=== PATIENT | female | born 1965 | race Caucasian/White ===

== ENCOUNTER 2017-09-02 20:56 | Observation (INO) | payer BC ==
[~2017-09-02] VITALS: Ht 162.6 cm; Wt 67.8 kg
[2017-09-02 21:54] LABS: HEMATOCRIT 37.5 % (36.0-46.0); MCH 32.9 PG (29.0-34.0); MCHC 34.7 G/DL (30.0-36.0); MCV 94.9 FL (83-99); PLATELET COUNT 309 K/uL (156-360); RBC DIS.WIDTH-CV 13.2 % (11.8-14.6); RBC DIS.WIDTH-SD 45.3 % (39-53); RED BLOOD COUNT 3.95 M/uL (3.80-5.20); WHITE BLOOD COUNT 13.8 K/uL (4.1-10.2)
[2017-09-02 22:01] LABS: ALBUMIN 3.9 g/dL (3.2-4.8); CHLORIDE 91 mEq/L (99-109); POTASSIUM 4.3 mEq/L (3.7-5.4); SODIUM 132 mEq/L (136-147)
[2017-09-02 22:04] LABS: GLUCOSE 77 mg/dL (70-99); TOTAL PROTEIN 6.8 g/dL (6.4-8.3)
[2017-09-02 22:06] LABS: TOTAL BILIRUBIN 0.6 mg/dL (0.0-1.0)
[2017-09-02 22:07] LABS: ALKALINE PHOSPHATASE 57 IU/L (3-129); CREATININE 0.8 mg/dL (0.6-1.3); GFR ESTIMATE (CALCULATED) > 59 mL/min/
[2017-09-02 22:08] LABS: UREA NITROGEN (BUN) 12 mg/dL (9-23)
[2017-09-02 22:09] LABS: AST (GOT) 23 IU/L (2-34)
[2017-09-02 22:10] LABS: ALT (GPT) 19 IU/L (3-49)
[2017-09-02 22:13] LABS: TROP-I INTERPRETATION NEGATIVE; TROPONIN-I < 0.01 ng/mL (0.0-0.30)
[2017-09-02] MEDS ORDERED: DULOXETINE HCL60 MG PO (23:20)
[2017-09-02] MEDS ORDERED: LACTULOSE10 GM/151 PO (23:21)
[2017-09-02] MEDS ORDERED: HYDROCHLOROTHIA25 MG PO (23:22)
[2017-09-02] MEDS ORDERED: HYDROXYCHLOROQ200 MG PO (23:23)
[2017-09-02] MEDS ORDERED: MORPHINE SULFAT15 M1 PO (23:25)
[2017-09-02] MEDS ORDERED: HYDROCODON-ACE1 EAC7 PO (23:26)
[2017-09-02] MEDS ORDERED: OSTEO BI-FLEX1 EAC1 PO (23:27)
[2017-09-02] MEDS ORDERED: MULTIVITAMIN1 EAC2 PO (23:29)
[2017-09-03 01:28] LABS: TROP-I INTERPRETATION NEGATIVE; TROPONIN-I < 0.01 ng/mL (0.0-0.30)
[2017-09-03 04:53] VITALS: BP 119/56
[2017-09-03 07:33] LABS: TROP-I INTERPRETATION NEGATIVE; TROPONIN-I < 0.01 ng/mL (0.0-0.30)
[2017-09-03 08:45] VITALS: BP 122/60
[2017-09-03 08:50] LABS: CHLORIDE 108 MEQ/L (99-109); SODIUM 142 MEQ/L (136-147)
[2017-09-03 08:55] LABS: CREATININE 0.5 MG/DL (0.6-1.3); GFR ESTIMATE (CALCULATED) > 59 mL/min/; UREA NITROGEN (BUN) 10 mg/dL (9-23)
[2017-09-03 09:04] LABS: GLUCOSE 132 mg/dL (70-99)
[2017-09-03 11:18] VITALS: BP 108/61
[2017-09-03 14:41] LABS: C4 COMPLEMENT 24 MG/DL (10-40)
[2017-09-03 15:05] VITALS: BP 121/64
[2017-09-03] MEDS ORDERED: INDOCIN25 MG PO (16:26)
[2017-09-03] MEDS ORDERED: MEDROL DOSEPAK4 MG PO (16:26)
[2017-09-05 11:40] LABS: ANTI-DOUBLE STRANDED DNA 33 U/mL (0-99)
== END 2017-09-03 17:57 | disposition home or self-care (01) ==
LOC: EME 20:56 → ENPENDDIS 09-03 → EDOF 09-03 03:31 → ENRESERV 09-03 03:46 → 5WEST 09-03 04:47
PROVIDERS: Emergency Medicine; Hospitalist; Internal Medicine
DX: M32.19 Other organ or system involvement in systemic lupus erythematosus (principal); R07.81 Pleurodynia; I31.3 Pericardial effusion (noninflammatory); J96.01 Acute respiratory failure with hypoxia; F17.210 Nicotine dependence, cigarettes, uncomplicated; E87.1 Hypo-osmolality and hyponatremia; R94.31 Abnormal electrocardiogram [ECG] [EKG]; I25.10 Atherosclerotic heart disease of native coronary artery without angina pectoris; I35.2 Nonrheumatic aortic (valve) stenosis with insufficiency; M14.80 Arthropathies in other specified diseases classified elsewhere, unspecified site; I10 Essential (primary) hypertension; E78.5 Hyperlipidemia, unspecified; D72.829 Elevated white blood cell count, unspecified
CPT/HCPCS: 71010; 71275; 80048; 80053; 83880; 84484; 85027; 85651; 86140; 86160; 86235; 93005; 94640; 94799; 99202; 99281; 99285; G0378; J1650; J1885; J2270; J2920; J3010; J7030; J7040

== ENCOUNTER 2017-10-04 11:25 | Day surgery (SDC) | payer BC ==
[~2017-10-04] VITALS: Ht 163.8 cm; Wt 66.0 kg
[~2017-10-04 11:25] MED LIST: ASPIR-LOW81 MG PO; DULOXETINE HCL60 MG PO; FAMOTIDINE40 MG PO; FOLIC ACID1 MG PO; HYDROCHLOROTHIA25 MG PO; HYDROCODON-ACE1 EAC7 PO; HYDROXYCHLOROQ200 MG PO; INDOCIN25 MG PO; LACTULOSE10 GM/151 PO; LOSARTAN POTASS25 MG PO; MEDROL DOSEPAK4 MG PO; METHOTREXATE2.5 MG PO; MORPHINE SULFAT15 M1 PO; MULTIVITAMIN1 EAC2 PO; OSTEO BI-FLEX1 EAC1 PO
== END 2017-10-04 19:20 | disposition home or self-care (01) ==
LOC: CATH 11:25
DX: I35.0 Nonrheumatic aortic (valve) stenosis (principal); I25.10 Atherosclerotic heart disease of native coronary artery without angina pectoris; I10 Essential (primary) hypertension; E78.5 Hyperlipidemia, unspecified; L93.0 Discoid lupus erythematosus; Z79.891 Long term (current) use of opiate analgesic; G89.29 Other chronic pain; Z79.82 Long term (current) use of aspirin
CPT/HCPCS: C1769; C1887; J1644; J2250; J3010

== ENCOUNTER 2017-11-17 19:02 | Inpatient (IN) | payer BC ==
[~2017-11-17] VITALS: Ht 162.6 cm; Wt 65.3 kg
[2017-11-17 19:42] LABS: HEMATOCRIT 32.1 % (36.0-46.0); HEMOGLOBIN 11.4 G/DL (11.9-15.5); MCH 32.4 PG (29.0-34.0); MCHC 35.5 G/DL (30.0-36.0); MCV 91.2 FL (83-99); PLATELET COUNT 457 K/uL (156-360); RBC DIS.WIDTH-CV 12.3 % (11.8-14.6); RED BLOOD COUNT 3.52 M/uL (3.80-5.20); WHITE BLOOD COUNT 11.3 K/uL (4.1-10.2)
[2017-11-17 20:03] LABS: CHLORIDE 88 mEq/L (99-109); POTASSIUM 3.6 mEq/L (3.7-5.4); SODIUM 129 mEq/L (136-147)
[2017-11-17 20:04] LABS: GLUCOSE 92 mg/dL (70-99)
[2017-11-17 20:08] LABS: CREATININE 0.8 mg/dL (0.6-1.3); GFR ESTIMATE (CALCULATED) > 59 mL/min/
[2017-11-17 20:09] LABS: UREA NITROGEN (BUN) 13 mg/dL (9-23)
[2017-11-17 20:17] LABS: TROP-I INTERPRETATION NEGATIVE; TROPONIN-I < 0.01 ng/mL (0.0-0.30)
[2017-11-18 00:43] LABS: APPEARANCE CLEAR ((CLEAR)); BILIRUBIN NEGATIVE; BLOOD NEGATIVE; COLOR YELLOW ((YELLOW)); GLUCOSE (STRIP) NEGATIVE; KETONES NEGATIVE; LEUKOCYTES LARGE; NITRITE NEGATIVE; PROTEIN (STRIP) NEGATIVE; SPECIFIC GRAVITY 1.016 (1.000-1.030); UROBILINOGEN 0.2 MG/DL (0.2-1.0)
[2017-11-18 00:51] LABS: BACTERIA RARE /HPF; EPITHELIAL CELLS RARE /HPF; MUCUS NONE SEEN /LPF; RED BLOOD CELLS 0-5 /HPF (0-5); UCUL ADDED? YES; WHITE BLOOD CELLS 15-20 /HPF (0-5)
[2017-11-18 01:40] VITALS: BP 95/55
[2017-11-18 01:41] VITALS: BP 95/55
[2017-11-18 05:42] LABS: TROP-I INTERPRETATION NEGATIVE; TROPONIN-I 0.01 ng/mL (0.0-0.30)
[2017-11-18 07:50] VITALS: BP 90/53
[2017-11-18 08:31] LABS: HEMATOCRIT 28.6 % (36.0-46.0); HEMOGLOBIN 9.6 G/DL (11.9-15.5); MCH 32.2 PG (29.0-34.0); MCHC 33.6 G/DL (30.0-36.0); PLATELET COUNT 391 K/uL (156-360); RBC DIS.WIDTH-CV 12.9 % (11.8-14.6); RBC DIS.WIDTH-SD 44.1 % (39-53); RED BLOOD COUNT 2.98 M/uL (3.80-5.20); WHITE BLOOD COUNT 8.6 K/uL (4.1-10.2)
[2017-11-18 08:43] LABS: CHLORIDE 99 MEQ/L (99-109); CREATININE 0.7 MG/DL (0.6-1.3); GFR ESTIMATE (CALCULATED) > 59 mL/min/; GLUCOSE 100 mg/dL (70-99); POTASSIUM 4.1 MEQ/L (3.7-5.4); SODIUM 134 MEQ/L (136-147); UREA NITROGEN (BUN) 13 mg/dL (9-23)
[2017-11-18 12:14] LABS: TROP-I INTERPRETATION NEGATIVE; TROPONIN-I 0.01 ng/mL (0.0-0.30)
[2017-11-18 16:00] VITALS: BP 110/74
[2017-11-18 16:41] LABS: C4 COMPLEMENT 31 MG/DL (10-40)
[2017-11-18 20:00] VITALS: BP 121/68
[2017-11-18 23:45] VITALS: BP 93/49
[2017-11-19 04:00] VITALS: BP 118/69
[2017-11-19 04:35] LABS: HEMATOCRIT 28.7 % (36.0-46.0); HEMOGLOBIN 9.8 G/DL (11.9-15.5); MCH 32.6 PG (29.0-34.0); MCHC 34.1 G/DL (30.0-36.0); MCV 95.3 FL (83-99); PLATELET COUNT 419 K/uL (156-360); RBC DIS.WIDTH-CV 12.8 % (11.8-14.6); RBC DIS.WIDTH-SD 43.6 % (39-53); RED BLOOD COUNT 3.01 M/uL (3.80-5.20); WHITE BLOOD COUNT 9.3 K/uL (4.1-10.2)
[2017-11-19 04:47] LABS: POTASSIUM 4.2 mEq/L (3.7-5.4); SODIUM 137 mEq/L (136-147)
[2017-11-19 04:52] LABS: CREATININE 0.6 mg/dL (0.6-1.3); GFR ESTIMATE (CALCULATED) > 59 mL/min/
[2017-11-19 04:53] LABS: UREA NITROGEN (BUN) 8 mg/dL (9-23)
[2017-11-19 04:55] LABS: CHLORIDE 100 mEq/L (99-109); GLUCOSE 159 mg/dL (70-99)
[2017-11-19 05:03] LABS: ERTH.SED.RATE 60 MM/HR (0-30)
[2017-11-19 07:33] VITALS: BP 114/66
[2017-11-19 11:34] VITALS: BP 135/78
[2017-11-19 16:11] VITALS: BP 131/61
[2017-11-19 20:23] VITALS: BP 105/57
[2017-11-19 22:55] VITALS: BP 111/61
[2017-11-20 05:02] VITALS: BP 123/73
[2017-11-20 06:06] LABS: BASOPHIL (%) 0.2 % (0-1); EOSINOPHIL (%) 0 % (0-5); HEMATOCRIT 29.3 % (36.0-46.0); HEMOGLOBIN 9.6 G/DL (11.9-15.5); IMMATURE GRANULOCYTE (%) 0.5 % (0.0-0.7); LYMPHOCYTE (%) 15.5 % (15-42); LYMPHOCYTE COUNT 1.7 K/uL (1.0-2.8); MCHC 32.8 G/DL (30.0-36.0); MCV 97.7 FL (83-99); MONOCYTE (%) 9.8 % (3-12); MONOCYTE COUNT 1.1 K/uL (0-0.8); NEUTROPHIL COUNT 8.2 K/uL (1.8-6.4); PLATELET COUNT 414 K/uL (156-360); RBC DIS.WIDTH-CV 13.1 % (11.8-14.6); RBC DIS.WIDTH-SD 45.3 % (39-53); WHITE BLOOD COUNT 11.1 K/uL (4.1-10.2)
[2017-11-20 06:36] LABS: CHLORIDE 103 MEQ/L (99-109); CREATININE 0.5 MG/DL (0.6-1.3); GFR ESTIMATE (CALCULATED) > 59 mL/min/; POTASSIUM 4.1 MEQ/L (3.7-5.4); SODIUM 139 MEQ/L (136-147); UREA NITROGEN (BUN) 9 mg/dL (9-23)
[2017-11-20 06:45] LABS: GLUCOSE 106 mg/dL (70-99)
[2017-11-20 07:30] VITALS: BP 101/57
[2017-11-20 08:57] LABS: ERTH.SED.RATE 63 MM/HR (0-30)
[2017-11-20 10:55] LABS: C-REACTIVE PROTEIN 63.5 MG/L (0-10)
[2017-11-20 11:20] VITALS: BP 131/93
[2017-11-20 14:15] LABS: ANTI-DOUBLE STRANDED DNA 25 U/mL (0-99)
[2017-11-20 15:19] VITALS: BP 111/71
[2017-11-20 19:38] VITALS: BP 95/57
[2017-11-20 23:39] VITALS: BP 110/62
[2017-11-21 04:29] VITALS: BP 110/75
[2017-11-21 05:05] LABS: BASOPHIL (%) 0.1 % (0-1); EOSINOPHIL (%) 0 % (0-5); HEMATOCRIT 30.2 % (36.0-46.0); IMMATURE GRANULOCYTE (%) 0.3 % (0.0-0.7); LYMPHOCYTE (%) 20.9 % (15-42); LYMPHOCYTE COUNT 2.1 K/uL (1.0-2.8); MCH 32.5 PG (29.0-34.0); MCHC 33.1 G/DL (30.0-36.0); MCV 98.1 FL (83-99); MONOCYTE (%) 8.8 % (3-12); MONOCYTE COUNT 0.9 K/uL (0-0.8); NEUTROPHIL (%) 69.9 % (45-76); PLATELET COUNT 463 K/uL (156-360); RBC DIS.WIDTH-SD 46.2 % (39-53); RED BLOOD COUNT 3.08 M/uL (3.80-5.20); WHITE BLOOD COUNT 9.9 K/uL (4.1-10.2)
[2017-11-21 05:12] LABS: CHLORIDE 102 mEq/L (99-109); SODIUM 138 mEq/L (136-147)
[2017-11-21 05:14] LABS: GLUCOSE 100 mg/dL (70-99)
[2017-11-21 05:18] LABS: CREATININE 0.6 mg/dL (0.6-1.3); GFR ESTIMATE (CALCULATED) > 59 mL/min/; UREA NITROGEN (BUN) 13 mg/dL (9-23)
[2017-11-21 07:18] LABS: ERTH.SED.RATE 63 MM/HR (0-30)
[2017-11-21 07:33] VITALS: BP 130/60
[2017-11-21] MEDS ORDERED: PREDNISONE20 MG PO (08:00)
== END 2017-11-21 10:12 | disposition home or self-care (01) | DRG 308 ==
LOC: EME 19:02 → 4EAST 23:58 → EDOF 23:58 → ENRESERV 23:59 → 4EAST 11-18 01:32
PROVIDERS: Emergency Medicine; Hospitalist
DX: I48.0 Paroxysmal atrial fibrillation (principal); K65.8 Other peritonitis; J90 Pleural effusion, not elsewhere classified; I31.3 Pericardial effusion (noninflammatory); E87.1 Hypo-osmolality and hyponatremia; F11.20 Opioid dependence, uncomplicated; J98.11 Atelectasis; E78.5 Hyperlipidemia, unspecified; M32.9 Systemic lupus erythematosus, unspecified; G89.4 Chronic pain syndrome; F17.210 Nicotine dependence, cigarettes, uncomplicated; I34.0 Nonrheumatic mitral (valve) insufficiency; I35.2 Nonrheumatic aortic (valve) stenosis with insufficiency; I36.1 Nonrheumatic tricuspid (valve) insufficiency; I37.1 Nonrheumatic pulmonary valve insufficiency; I25.10 Atherosclerotic heart disease of native coronary artery without angina pectoris; I10 Essential (primary) hypertension; I48.92 Unspecified atrial flutter; D64.9 Anemia, unspecified; I47.1 Supraventricular tachycardia; I95.9 Hypotension, unspecified; I27.20 Pulmonary hypertension, unspecified; M32.13 Lung involvement in systemic lupus erythematosus
CPT/HCPCS: 71046; 71275; 80048; 81003; 83605; 83880; 84484; 85025; 85027; 85652; 86038; 86140; 86160; 86235; 87040; 87086; 87449; 93005; 93306; 93970; 94010; 94640; 94640 76; 99202; 99281; 99285; J0692; J1650; J1885; J2270; J3370; J7030; J7040; J7512; J8610

== ENCOUNTER 2018-04-08 10:54 | Inpatient (IN) | payer BC ==
[~2018-04-08] VITALS: Ht 162.6 cm; Wt 59.7 kg
[~2018-04-08 10:54] MED LIST changes: +PREDNISONE20 MG PO
[2018-04-08 11:34] LABS: HEMATOCRIT 32.5 % (36.0-46.0); HEMOGLOBIN 11.9 G/DL (11.9-15.5); MCH 30.4 PG (29.0-34.0); MCHC 36.6 G/DL (30.0-36.0); MCV 82.9 FL (83-99); PLATELET COUNT 425 K/uL (156-360); RBC DIS.WIDTH-CV 13.7 % (11.8-14.6); RBC DIS.WIDTH-SD 40.6 % (39-53); RED BLOOD COUNT 3.92 M/uL (3.80-5.20); WHITE BLOOD COUNT 8.2 K/uL (4.1-10.2)
[2018-04-08 11:43] LABS: PTT 26.4 SEC (25-37)
[2018-04-08 12:10] LABS: TROP-I INTERPRETATION NEGATIVE; TROPONIN-I < 0.01 ng/mL (0.0-0.30)
[2018-04-08 12:11] LABS: QUANTITATIVE HCG < 4.0 MIU/ML
[2018-04-08 12:38] LABS: ALBUMIN 3.5 G/DL (3.2-4.8); CHLORIDE 79 MEQ/L (99-109); POTASSIUM 2.6 MEQ/L (3.7-5.4); SODIUM 122 MEQ/L (136-147); TOTAL BILIRUBIN 0.3 MG/DL (0.0-1.0)
[2018-04-08 12:43] LABS: ALKALINE PHOSPHATASE 65 IU/L (3-129); ALT (GPT) 9 IU/L (3-49); AST (GOT) 21 IU/L (2-34); GFR ESTIMATE (CALCULATED) > 59 mL/min/; GLUCOSE 73 mg/dL (70-99); TOTAL PROTEIN 6.9 G/DL (6.4-8.3); UREA NITROGEN (BUN) 22 mg/dL (9-23)
[2018-04-08 13:15] LABS: APPEARANCE CLEAR ((CLEAR)); BILIRUBIN NEGATIVE; BLOOD NEGATIVE; COLOR STRAW ((YELLOW)); GLUCOSE (STRIP) NEGATIVE; KETONES NEGATIVE; LEUKOCYTES NEGATIVE; NITRITE NEGATIVE; PROTEIN (STRIP) NEGATIVE; SPECIFIC GRAVITY 1.008 (1.000-1.030); UCUL ADDED? NO; UROBILINOGEN 0.2 MG/DL (0.2-1.0)
[2018-04-08] MEDS ORDERED: FLEXERIL5 MG PO (14:38)
[2018-04-08] MEDS ORDERED: HYOSCYAMINE0.125 M2 PO (14:39)
[2018-04-08] MEDS ORDERED: IRON325 M1 PO (14:40)
[2018-04-08] MEDS ORDERED: LASIX40 MG PO (14:40)
[2018-04-08] MEDS ORDERED: NICOTINE PATCH1 EAC2 TD (14:41)
[2018-04-08] MEDS ORDERED: SEROQUEL12.5 MG PO (14:42)
[2018-04-08] MEDS ORDERED: LOPRESSOR25 MG PO (14:43)
[2018-04-08 16:32] VITALS: BP 101/55
[2018-04-08 19:30] VITALS: BP 97/63
[2018-04-08 21:36] VITALS: BP 125/59
[2018-04-08 22:40] LABS: CHLORIDE 86 mEq/L (99-109); SODIUM 128 mEq/L (136-147)
[2018-04-08 22:44] LABS: GLUCOSE 102 mg/dL (70-99); POTASSIUM 3.6 mEq/L (3.7-5.4)
[2018-04-08 22:46] LABS: CREATININE 0.8 mg/dL (0.6-1.3); GFR ESTIMATE (CALCULATED) > 59 mL/min/; UREA NITROGEN (BUN) 21 mg/dL (9-23)
[2018-04-08 23:55] VITALS: BP 97/59
[2018-04-09 01:19] VITALS: BP 101/67
[2018-04-09 04:46] VITALS: BP 119/56
[2018-04-09 05:36] LABS: HEMATOCRIT 34.9 % (36.0-46.0); MCH 29.6 PG (29.0-34.0); MCHC 34.4 G/DL (30.0-36.0); MCV 86.2 FL (83-99); PLATELET COUNT 449 K/uL (156-360); RBC DIS.WIDTH-CV 14.2 % (11.8-14.6); RBC DIS.WIDTH-SD 43.2 % (39-53); RED BLOOD COUNT 4.05 M/uL (3.80-5.20); WHITE BLOOD COUNT 6.8 K/uL (4.1-10.2)
[2018-04-09 06:02] LABS: CREATININE 0.7 MG/DL (0.6-1.3); GFR ESTIMATE (CALCULATED) > 59 mL/min/; GLUCOSE 75 mg/dL (70-99); POTASSIUM 3.6 MEQ/L (3.7-5.4); SODIUM 132 MEQ/L (136-147); UREA NITROGEN (BUN) 14 mg/dL (9-23)
[2018-04-09 06:11] LABS: CHLORIDE 90 MEQ/L (99-109)
[2018-04-09 09:00] VITALS: BP 133/72
[2018-04-09 12:00] VITALS: BP 124/75
[2018-04-09 16:40] VITALS: BP 122/59
== END 2018-04-09 18:59 | disposition home or self-care (01) | DRG 312 ==
LOC: EME 10:54 → EDOF 14:40 → ENRESERV 14:45 → EDOF 14:50 → 4EAST 14:50 → EDOF 14:50 → ENRESERV 15:04 → 4EAST 16:04
PROVIDERS: Emergency Medicine; Internal Medicine
PROC: 0HQ0XZZ Repair Scalp Skin, External Approach (ICD-10-PCS; principal; 2018-04-08)
DX: R55 Syncope and collapse (principal); E87.1 Hypo-osmolality and hyponatremia; E87.8 Other disorders of electrolyte and fluid balance, not elsewhere classified; E87.6 Hypokalemia; T50.2X5A Adverse effect of carbonic-anhydrase inhibitors, benzothiadiazides and other diuretics, initial encounter; T50.1X5A Adverse effect of loop [high-ceiling] diuretics, initial encounter; M32.9 Systemic lupus erythematosus, unspecified; I48.0 Paroxysmal atrial fibrillation; I10 Essential (primary) hypertension; E78.5 Hyperlipidemia, unspecified; I25.10 Atherosclerotic heart disease of native coronary artery without angina pectoris; G89.29 Other chronic pain; M06.9 Rheumatoid arthritis, unspecified; S01.01XA Laceration without foreign body of scalp, initial encounter; W18.39XA Other fall on same level, initial encounter; W22.8XXA Striking against or struck by other objects, initial encounter; Y92.511 Restaurant or cafe as the place of occurrence of the external cause; Y99.0 Civilian activity done for income or pay; F17.210 Nicotine dependence, cigarettes, uncomplicated; Z79.82 Long term (current) use of aspirin; Z86.73 Personal history of transient ischemic attack (TIA), and cerebral infarction without residual deficits; Z95.3 Presence of xenogenic heart valve
CPT/HCPCS: 70450; 71045; 80048; 80048 91; 80053; 81003; 83930; 83935; 84300; 84484; 84550; 84702; 85027; 85610; 85730; 93005; 93306; 95819; 99281; 99285; J3010; J7030